=== PATIENT | male | born 1980 | race African-American/Black ===

== ENCOUNTER 2018-01-03 08:44 | Emergency (ER) | payer OTHER ==
[~2018-01-03] VITALS: Ht 172.7 cm; Wt 90.7 kg
--- NOTE | ~2018-01-03 | EKG ---
[place] [address] [employer] [facility] [place] [address] ELECTROCARDIOGRAM REPORT Name: DRAGAN ARIZMENDI III Room #: [facility].#: [id number] Admission: Attend Phys: Discharge: Date of : 78 Report #: [id number] THIS REPORT FOR: //name// [facility] ED Test Date: 2018-01-03 Test Time: 08:56:07 Pat Name: DRAGAN ARIZMENDI Department: Room: Gender: M Manager Decision Support: KF : 1980 Requested By: Ronen Mcneil Order Number: [id number] MD: Darrian Pimentel Measurements Intervals [place] Rate: 58 P: 37 [place]: 162 QRS: 19 QRSD: 103 T: 10 QT: 441 QTc: 434 Interpretive Statements Sinus bradycardia ST elev, probable normal early repol pattern No previous ECG available for comparison Electronically Signed On 01-03-2018 9:15:35 CDT by Darrian Pimentel [email or web address] <ELECTRONICALLY SIGNED> By: Darrian Pimentel MD, [facility] 01/03/18 0915 [id number] Darrian Pimentel MD, FACC /EPI
[2018-01-03 09:14] LABS: BASOPHILS 0.5 % (0.0-2.0); HEMATOCRIT 41.6 % (42.0-52.0); HEMOGLOBIN 13.9 gm/dL (14.0-18.0); LYMPHOCYTES 16.7 % (24.0-44.0); MCH 24.1 pg (26.0-34.0); MCHC 33.5 g/dL (28.0-37.0); MONOCYTES 2.8 % (1.0-8.0); PLATELET COUNT 202 thou/uL (150-400); RBC 5.78 mil/uL (4.50-6.00); RDW 14.4 % (10.5-14.5); WBC 10.1 thou/uL (4.0-11.0)
[2018-01-03 09:30] LABS: ANION GAP 12 mmol/L (7-16); BUN 14 mg/dL (7-18); CALCIUM 9.4 mg/dL (8.5-10.1); CHLORIDE 102 mmol/L (98-107); CO2 23 mmol/L (21-32); CREATININE 1.2 mg/dL (0.7-1.3); GLUCOSE 163 mg/dL (74-106); POTASSIUM 3.5 mmol/L (3.5-5.1); SODIUM 137 mmol/L (136-145)
[2018-01-03 09:39] LABS: ALBUMIN 4.4 g/dL (3.4-5.0); LIPASE 77 U/L (73-393); SGOT 19 U/L (15-37); SGPT 30 U/L (30-65); TOTAL BILIRUBIN 0.3 mg/dL (<0.1-1.0); TOTAL PROTEIN 8.3 g/dL (6.4-8.2); TROPONIN-I <0.06 ng/mL (<0.06)
[2018-01-03] MEDS ORDERED: REGLAN 10 MG TA10 MG PO (12:02)
[2018-01-03] MEDS ORDERED: MOBIC15 MG PO (12:03)
[2018-01-03 12:32] VITALS: BP 142/74
== END 2018-01-03 12:33 | disposition home or self-care (01) ==
LOC: ER 08:44
PROVIDERS: Physician Assistant
DX: R07.2 Precordial pain (principal); R10.13 Epigastric pain; R11.2 Nausea with vomiting, unspecified